=== PATIENT | female | born 1960 | race African-American/Black ===

== ENCOUNTER 2019-01-14 12:28 | Emergency (ER) | payer OTHER ==
[~2019-01-14] VITALS: Ht 175.3 cm; Wt 77.1 kg
[~2019-01-14 12:28] MED LIST: CALC-343 PO; INSU100V11 SQ; INSU100V7 SQ; MULT-465 PO; OMEP10CA4 PO; PROP10TA10 PO; VITA1TAB PO; [UNRECOGNIZED DRUG - CODE] PO
[2019-01-14 12:36] VITALS: BP 173/98
--- NOTE | 2019-01-14 12:47 | NUR ---
AT BEDSIDE FOR EVAL.
[2019-01-14] MEDS ORDERED: AMOXICILLIN TRIHYDRATE 250 MG CAPSULE ONE (12:56)
[2019-01-14] MEDS ORDERED: IBUPROFEN 600 MG TABLET PO ONE ×2 (12:56→13:00)
[2019-01-14] MEDS ORDERED: AMOXICILLIN TRIHYDRATE 250 MG CAPSULE PO ONE (13:00)
--- NOTE | 2019-01-14 13:05 | NUR ---
Patient discharged to home in stable condition. Written and verbal after care instructions given. Patient verbalizes understanding of instruction.
== END 2019-01-14 13:24 | disposition home or self-care (01) ==
LOC: ER 12:35
DX: J02.9 Acute pharyngitis, unspecified (principal); E11.9 Type 2 diabetes mellitus without complications; Z79.4 Long term (current) use of insulin

== ENCOUNTER 2019-02-03 15:17 | Inpatient (IN) | payer BC, OTHER ==
[~2019-02-03] VITALS: Ht 175.3 cm; Wt 71.7 kg
--- NOTE | 2019-02-03 08:15 | NUR ---
RN OPEN NOTES RECEIVED PATIENT FROM ER VIA WHEELCHAIR WITH FAMILY AT BEDSIDE. A/O X4. NO SIGNS OF DISTRESS OR DISCOMFORT. BREATHING EVEN AND UNLABORED. IV ACCESS IN RAC, PATENT AND INTACT, NO SIGNS OF REDNESS OR INFILTRATION. ORIENTED PATIENT TO UNIT AND ROOM. NO SKIN ISSUES NOTED. BED IN LOW LOCKED POSITION WITH SIDE RAILS X2. CALL LIGHT WITHIN REACH. WILL CONTINUE TO MONITOR. Addendum: 02/04/19 at 0721 by FREIDA BUI RN ERROR: DOCUMENTED WRONG TIME
[~2019-02-03 15:17] MED LIST changes: -OMEP10CA4 PO; +OMEP10CA5 PO
[2019-02-03] MEDS ORDERED: ONDANSETRON HCL/PF 4 MG/2 ML VIAL ONE (15:40)
[2019-02-03] MEDS ORDERED: MORPHINE SULFATE INJ 4 MG/ML DISP.SYRIN ONE (15:41)
[2019-02-03 15:51] LABS: BASOPHILS # (AUTO) 0.1 /CMM (0.0-0.2); BASOPHILS % (AUTO) 1.1 % (0.0-2.0); EOSINOPHILS % (AUTO) 2.7 % (0.0-6.0); HEMATOCRIT 40 % (33-45); HEMOGLOBIN 13.8 g/dL (11.5-14.8); LYMPHOCYTES # (AUTO) 0.2 /CMM (0.8-4.8); MEAN CORPUSCULAR HGB CONC 35 g/dl (31.0-36.0); MEAN CORPUSCULAR VOLUME 91 fL (82-100); MONOCYTES # (AUTO) 0.3 /CMM (0.1-1.30); MONOCYTES % (AUTO) 6.6 % (2.0-12.0); NEUTROPHILS # (AUTO) 4.1 /CMM (1.8-8.9); NEUTROPHILS % (AUTO) 84.6 % (43.0-81.0); PLATELET COUNT (AUTO) 76 /CMM (150-450); RED BLOOD CELL COUNT(AUTO) 4.37 MIL/uL (4.0-5.2); WHITE BLOOD COUNT (AUTO) 4.8 K/uL (4.3-11.0)
--- NOTE | 2019-02-03 15:54 | NUR ---
PT BIBSELF FOR ABD PAIN; PT AAOX4, PT TO BED 7, -SOB, NAD NOTED, PENDING MD VAUGHN
[2019-02-03] MEDS ORDERED: IV NS 0.9% 1,000 ML BAG IV ONE (16:00)
[2019-02-03] MEDS ORDERED: MORPHINE SULFATE INJ 2 MG/ML DISP.SYRIN IV ONE (16:00)
[2019-02-03] MEDS ORDERED: ONDANSETRON HCL/PF 4 MG/2 ML VIAL IVP ONE (16:00)
[2019-02-03 16:12] LABS: CALCIUM, SERUM 9.1 mg/dL (8.5-10.1); CARBON DIOXIDE 26 mmol/L (21-32); CHLORIDE 98 mmol/L (98-107); CREATININE 0.8 mg/dL (0.6-1.3); GLUCOSE 232 mg/dL (74-106); POTASSIUM 4.2 mmol/L (3.5-5.1); SODIUM SERUM 132 mmol/L (136-145); UREA NITROGEN, BLOOD 10 mg/dL (7-18)
[2019-02-03] MEDS ORDERED: IV NS 0.9% 250 ML IV ONE (16:12)
[2019-02-03] MEDS ORDERED: IOHEXOL-300 100 ML VIAL IV ONE (16:12)
[2019-02-03] MEDS ORDERED: CT SWABBABLE VALVE TRANS SET 1 EA INFUS.SET MC ONE (16:12)
[2019-02-03 16:25] LABS: ALANINE AMINOTRANSFERASE 55 U/L (12-78); ALBUMIN 2.8 g/dL (3.4-5.0); ALKALINE PHOSPHATASE 311 U/L (46-116); ASPARTATE AMINOTRANSFERASE 70 U/L (15-37); BILIRUBIN,DIRECT 3.1 mg/dL (0.0-0.2); BILIRUBIN,TOTAL 4.8 mg/dL (0.2-1.0); LIPASE 309 U/L (73-393); TOTAL PROTEIN, SERUM 7.4 g/dL (6.4-8.2)
[2019-02-03 16:37] LABS: EOSINOPHILS % (MANUAL) 2 % (0-4); LYMPHOCYTES % (MANUAL) 7 % (16-48); MONOCYTES % (MANUAL) 6 % (0-11.0); NEUTROPHILS % (MANUAL) 84 (42-76); PROMYELOCYTES % 1 % (0-0)
[2019-02-03] MEDS ORDERED: HYDROMORPHONE 1 MG/1 ML DISP.SYRIN ONE (17:22)
[2019-02-03] MEDS ORDERED: HYDROMORPHONE 1 MG/1 ML DISP.SYRIN IV ONE (17:30)
[2019-02-03] MEDS ORDERED: CHOL100044 PO (17:39)
[2019-02-03] MEDS ORDERED: VITA1TAB56 PO (17:39)
[2019-02-03] MEDS ORDERED: FURO20TA4 PO (17:39)
[2019-02-03] MEDS ORDERED: POTA20TA83 PO (17:39)
[2019-02-03] MEDS ORDERED: INSU100I26 SQ (17:39)
[2019-02-03] MEDS ORDERED: SPIR50TA5 PO (17:39)
[2019-02-03] MEDS ORDERED: RIFA550T PO (17:39)
[2019-02-03] MEDS ORDERED: INSU100I14 SQ (17:39)
[2019-02-03] MEDS ORDERED: PANT40TA4 PO (17:39)
[2019-02-03] MEDS ORDERED: MORPHINE SULFATE INJ 2 MG/ML DISP.SYRIN IV PRN (19:30)
[2019-02-03] MEDS ORDERED: Z GUARD REMEDY 2 OZ OINT TP PRN (19:30)
[2019-02-03] MEDS ORDERED: ZOLPIDEM TARTRATE 5 MG TABLET PO PRN (19:30)
[2019-02-03] MEDS ORDERED: LACTULOSE 10 G/15 ML UDC (PYXIS) PO ONE (19:30)
[2019-02-03] MEDS ORDERED: MAGNESIUM HYDROXIDE 30 ML UDC PO PRN (19:30)
[2019-02-03] MEDS ORDERED: ONDANSETRON HCL/PF 4 MG/2 ML VIAL IVP PRN (19:30)
[2019-02-03] MEDS ORDERED: HYDROCODONE/APAP 5/325MG 1 EACH TABLET PO PRN (19:30)
[2019-02-03] MEDS ORDERED: MAG HYDROX/AL HYDROX/SIMETH 30 ML UDC PO PRN (19:30)
[2019-02-03] MEDS ORDERED: DEXTROSE 50%-WATER 50 ML DISP.SYRIN IV PRN (19:30)
--- NOTE | 2019-02-03 19:43 | NUR ---
207-1 M/S DX PANCREATITIS, BERYL DNP
--- NOTE | 2019-02-03 20:00 | NUR ---
JOSELO TGIVEN TO JERRELL BARRAGAN FOR MARYBETH; PT WILL BE TRANSPORTED TO [facility]
[2019-02-03 20:10] VITALS: BP 151/86
--- NOTE | 2019-02-03 20:15 | NUR ---
RN OPEN NOTES RECEIVED PATIENT FROM ER VIA WHEELCHAIR WITH FAMILY AT BEDSIDE. A/O X4. NO SIGNS OF DISTRESS OR DISCOMFORT. BREATHING EVEN AND UNLABORED. IV ACCESS IN RAC, PATENT AND INTACT, NO SIGNS OF REDNESS OR INFILTRATION. ORIENTED PATIENT TO UNIT AND ROOM. NO SKIN ISSUES NOTED. BED IN LOW LOCKED POSITION WITH SIDE RAILS X2. CALL LIGHT WITHIN REACH. WILL CONTINUE TO MONITOR.
--- NOTE | 2019-02-03 20:40 | NUR ---
RN NOTES ADMINISTERED MORPHINE SULFATE 4MG ORDERED FOR ABD PAIN 04/23, AT PATIENT REQUEST. VSS. WILL CONTINUE TO MONITOR.
[2019-02-03] MEDS: BLOOD SUGAR DIAGNOSTIC 1 EACH STRIP IN SCH (21:51)
[2019-02-03] MEDS: INSULIN REGULAR, HUMAN 100 UNIT/ML 3 ML VIAL SQ PRN (21:53)
[2019-02-03] MEDS: INSULIN GLARGINE, 100 UNIT/ML CARTRIDGE SQ SCH (21:57)
[2019-02-04] MEDS: IV 1/2NS 1000 ML 1,000 ML IV PRN (01:20)
[2019-02-04] MEDS: diphenhydrAMINE HCL 25 MG CAPSULE PO PRN ×2 (03:02→20:42)
[2019-02-04 06:49] LABS: BASOPHILS % (AUTO) 0.4 % (0.0-2.0); EOSINOPHILS % (AUTO) 2.9 % (0.0-6.0); HEMATOCRIT 37 % (33-45); HEMOGLOBIN 12.7 g/dL (11.5-14.8); LYMPHOCYTES # (AUTO) 0.3 /CMM (0.8-4.8); LYMPHOCYTES % (AUTO) 4.8 % (20.0-44.0); MEAN CORPUSCULAR HGB CONC 34 g/dl (31.0-36.0); MEAN CORPUSCULAR VOLUME 90 fL (82-100); MONOCYTES # (AUTO) 0.6 /CMM (0.1-1.30); NEUTROPHILS # (AUTO) 5.4 /CMM (1.8-8.9); NEUTROPHILS % (AUTO) 82.9 % (43.0-81.0); PLATELET COUNT (AUTO) 78 /CMM (150-450); RED BLOOD CELL COUNT(AUTO) 4.11 MIL/uL (4.0-5.2); WHITE BLOOD COUNT (AUTO) 6.5 K/uL (4.3-11.0)
[2019-02-04] MEDS: BLOOD SUGAR DIAGNOSTIC 1 EACH STRIP IN SCH ×4 (06:51→21:44)
[2019-02-04 07:08] LABS: ALBUMIN 2.5 g/dL (3.4-5.0); BILIRUBIN,TOTAL 4.9 mg/dL (0.2-1.0); CALCIUM, SERUM 8.7 mg/dL (8.5-10.1); CREATININE 0.9 mg/dL (0.6-1.3); MAGNESIUM 1.3 mg/dL (1.8-2.4); POTASSIUM 4.2 mmol/L (3.5-5.1); TOTAL PROTEIN, SERUM 6.6 g/dL (6.4-8.2)
[2019-02-04 07:19] LABS: THYROID STIMULATING HORMONE 1.906 uIU/mL (0.358-3.74)
--- NOTE | 2019-02-04 07:21 | NUR ---
RN OPENING NOTE PT WAS RECEIVED IN BED AT LOWEST AND LOCKED POSITION WITH SIDE RAILS UP X2, A/O X4 BREATHING EVEN AND UNLABORED ON RA WITH NO CURRENT COMPLAINTS OF ANY DISTRESS OR PAIN NOTED AT THIS TIME, IV IS PATENT AND INTACT, AWAITING SOCIAL SERVICE CONSULT, PT IS AMBULATORY, SAFETY PRECAUTIONS IN PLACE, CALL LIGHT WITHIN REACH, WILL MONITOR ACCORDINGLY
--- NOTE | 2019-02-04 07:22 | NUR ---
RN CLOSING NOTES PATIENT AWAKE LYING IN BED. A/O X4. NO SIGNS OF DISTRESS OR DISCOMFORT. BREATHING EVEN AND UNLABORED. IV ACCESS IN RAC WITH 1/2 NS INFUSING, PATENT AND INTACT, NO SIGNS OF REDNESS OR INFILTRATION. ALL NEEDS MET. NO SIGNIFICANT CHANGES THROUGH THE NIGHT. DENIES ANY PAIN AT THIS TIME. BED IN LOW LOCKED POSITION WITH SIDE RAILS X2. CALL LIGHT WITHIN REACH. ENDORSED TO AM SHIFT FOR MARYBETH.
[2019-02-04 08:00] VITALS: BP 124/73
[2019-02-04] MEDS: CALCIUM CARBONATE 500 MG TAB.CHEW PO SCH ×2 (08:42→16:56)
[2019-02-04] MEDS: PANTOPRAZOLE 40 MG TABLET.DR PO SCH (08:43)
[2019-02-04] MEDS: CHOLECALCIFEROL 1,000 UNIT TABLET (VIT D3) PO SCH (08:43)
[2019-02-04] MEDS: POTASSIUM CHLORIDE 20 MEQ TAB.PRT.SR PO SCH (08:43)
[2019-02-04] MEDS: VITAMIN B COMP W-C 1 TAB TABLET PO SCH (08:43)
[2019-02-04] MEDS: PROPRANOLOL HCL 10 MG TABLET PO SCH (08:44)
[2019-02-04] MEDS: SPIRONOLACTONE 25 MG TABLET PO SCH (08:44)
[2019-02-04] MEDS: FUROSEMIDE 20 MG TABLET PO SCH (08:44)
[2019-02-04] MEDS: RIFAXIMIN 550 MG TABLET PO SCH ×2 (08:45→16:56)
[2019-02-04] MEDS ORDERED: SPIRONOLACTONE 50 MG TABLET PO SCH (09:00)
[2019-02-04 09:22] LABS: APPEARANCE,URINE CLEAR (CLEAR); BILIRUBIN,URINE 1+ (NEGATIVE); BLOOD, URINE TRACE Ery/uL (NEGATIVE); COLOR,URINE AMBER (YELLOW); KETONES,URINE TRACE (NEGATIVE); LEUKOCYTE ESTERASE ,URINE 2+ (NEGATIVE); NITRITE, URINE NEGATIVE (NEGATIVE); PH,URINE 6.5 (5.0-8.0); PROTEIN,URINE TRACE mg/dl (NEGATIVE); UGLUCOSE NEGATIVE (NEGATIVE)
[2019-02-04 09:43] LABS: BACTERIA,URINE Moderate /HPF (None Seen); SQUAMOUS EPITHELIAL CELL,UR Many /HPF (None Seen)
[2019-02-04] MEDS: Magnesium 1GM/D5W 100ML PREMIX 100 ML IV SCH ×4 (11:55→15:03)
[2019-02-04] MEDS: INSULIN REGULAR, HUMAN 100 UNIT/ML 3 ML VIAL SQ PRN ×3 (11:58→21:59)
--- NOTE | 2019-02-04 14:30 | NUR ---
RN NOTE MAG REPLACED AT THIS TIME
[2019-02-04] MEDS: CEFTRIAXONE 1 G in IV D5W 50 ML IV SCH (15:08)
[2019-02-04] MEDS: HYDROMORPHONE 1 MG/1 ML DISP.SYRIN IV PRN ×2 (15:12→21:23)
[2019-02-04 16:00] VITALS: BP 137/76
--- NOTE | 2019-02-04 17:05 | NUR ---
RN NOTE 1700 MEDS HELD AND NO INSULIN GIVEN DUE TO NPO DIAGNOSIS AND LANTUS SCHEDULED FOR LATER THIS NIGHT
--- NOTE | 2019-02-04 18:52 | NUR ---
RN OPENING NOTE PT IN BED AT LOWEST AND LOCKED POSITION WITH SIDE RAILS UP X2, A/O X4 BREATHING EVEN AND UNLABORED ON RA WITH NO CURRENT COMPLAINTS OF ANY DISTRESS OR PAIN NOTED AT THIS TIME, IV IS PATENT AND INTACT, CURRENTLY NPO, SAFETY PRECAUTIONS IN PLACE, CALL LIGHT WITHIN REACH, ALL NEEDS ATTENDED TO, WILL ENDORSE TO EAP SPECIALIST RN FOR MARYBETH. Addendum: 02/04/19 at 1854 by TASH SANTOS RN RN CLOSING NOTE
--- NOTE | 2019-02-04 19:00 | NUR ---
MS RN OPENING NOTES: RECEIVED PT ON ROOM AIR AND IS TOLERATING WELL. NO SOB NOTED. NO S/S OF DISTRESS. PT NPO AT THIS TIME AND ASKING IF SHE CAN HAVE SOMETHING TO EAT SHE IS HUNGRY. IV REMAINS INTACT AND IS BEING INFUSED WITH IV 1/2 NS AT 125ML/HR. BED KEPT IN LOW, LOCKED POSITION, AND SIDE RAILS X 2UP. WILL CONTINUE TO MONITOR PT.
[2019-02-04 20:17] VITALS: BP 131/82
--- NOTE | 2019-02-04 20:20 | NUR ---
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 ALSO INFORMED HER THAT PT HAS A TEMP OF 100.4 ; GOT ORDER FOR TYLENOL 650MG PO Q6HR PRN FEVER.
[2019-02-04] MEDS: ACETAMINOPHEN 325 MG TABLET PO PRN (21:51)
[2019-02-04] MEDS: INSULIN GLARGINE, 100 UNIT/ML CARTRIDGE SQ SCH (21:58)
--- NOTE | 2019-02-04 23:20 | NUR ---
MS RN NOTES: SKYLA MCNEAL AWARE OF US AB AND DOPPLER AB RESULTS.
--- NOTE | 2019-02-05 | NUR ---
MS RN NOTES: ICE PACKS GIVEN TO PT TO HELD REDUCE FEVER. WILL CONTINUE TO MONITOR.
[2019-02-05] MEDS: IV 1/2NS 1000 ML 1,000 ML IV PRN ×2 (01:40→12:01)
[2019-02-05] MEDS: LACTULOSE 10 G/15 ML UDC (PYXIS) PO PRN (01:44)
--- NOTE | 2019-02-05 01:45 | NUR ---
MS RN NOTES: PT COMPLAINING OF CONSTIPATION. PT GIVEN LACTULOSE PO ORDERED. WILL CONTINUE TO MONITOR.
[2019-02-05] MEDS: HYDROMORPHONE 1 MG/1 ML DISP.SYRIN IV PRN ×2 (06:14→16:29)
[2019-02-05] MEDS: INSULIN REGULAR, HUMAN 100 UNIT/ML 3 ML VIAL SQ PRN ×3 (06:19→16:53)
--- NOTE | 2019-02-05 06:24 | NUR ---
MS RN NOTES: PT WAKING UP AND COMPLAINING OF 10/10 AB CRAMPY PAIN. PT WAS ADMINISTERED DILAUDID 1MG IV. BLOOD SUGAR THIS MORNING WAS 273. 6 UNITS OF INSULIN WAS ADMINISTERED. SNACK WAS PROVIDED TO PT WELL. WILL CONTINUE TO MONITOR.
[2019-02-05 06:28] LABS: BASOPHILS % (AUTO) 0.3 % (0.0-2.0); HEMATOCRIT 36 % (33-45); HEMOGLOBIN 12.5 g/dL (11.5-14.8); LYMPHOCYTES # (AUTO) 0.2 /CMM (0.8-4.8); LYMPHOCYTES % (AUTO) 3.5 % (20.0-44.0); MEAN CORPUSCULAR HGB CONC 35 g/dl (31.0-36.0); MEAN CORPUSCULAR VOLUME 91 fL (82-100); MONOCYTES # (AUTO) 0.7 /CMM (0.1-1.30); MONOCYTES % (AUTO) 11.6 % (2.0-12.0); NEUTROPHILS % (AUTO) 82.6 % (43.0-81.0); PLATELET COUNT (AUTO) 65 /CMM (150-450); RED BLOOD CELL COUNT(AUTO) 3.98 MIL/uL (4.0-5.2); WHITE BLOOD COUNT (AUTO) 6.1 K/uL (4.3-11.0)
[2019-02-05] MEDS: BLOOD SUGAR DIAGNOSTIC 1 EACH STRIP IN SCH ×4 (06:34→21:22)
[2019-02-05 06:43] LABS: ALBUMIN 2.3 g/dL (3.4-5.0); BILIRUBIN,DIRECT 4.6 mg/dL (0.0-0.2); CALCIUM, SERUM 8.4 mg/dL (8.5-10.1); CREATININE 0.9 mg/dL (0.6-1.3); MAGNESIUM 1.7 mg/dL (1.8-2.4); POTASSIUM 4.1 mmol/L (3.5-5.1); TOTAL PROTEIN, SERUM 6.3 g/dL (6.4-8.2)
--- NOTE | 2019-02-05 07:03 | NUR ---
MS RN CLOSING NOTES: ALL NEEDS WERE ATTENDED AND ANTICIPATED FOR. PT KEPT CLEAN, DRY, AND COMFORTABLE. PT RESTING IN BED COMFORTABLY AT THIS TIME. PAIN HAS BEEN MANAGED. IV REMAINS INTACT AND IS BEING INFUSED WITH IV 1/2 NS AT 125ML/HR. BED KEPT IN LOW, LOCKED POSITION, AND SIDE RAILS X 2UP. WILL ENDORSE TO AM NURSE FOR MARYBETH.
[2019-02-05 08:00] VITALS: BP 120/75
--- NOTE | 2019-02-05 08:00 | NUR ---
MS RN OPENING NOTES: RECEIVED PT ON ROOM AIR AND IS TOLERATING WELL. NO SOB NOTED. NO S/S OF DISTRESS. PT AMBULATING ALONG THE HALLWAY.TOLERATING WELL. PT C/O NOT HAVING BM SINCE LAST MONDAY.IV REMAINS INTACT AND IS BEING INFUSED WITH IV 1/2 NS AT 125ML/HR. BED KEPT IN LOW, LOCKED POSITION, AND SIDE RAILS X 2UP. WILL GIVE MILK OF MAGNESIA.WILL CONTINUE TO MONITOR PT. CALL LIGHT WITHIN REACH.
[2019-02-05] MEDS: PROPRANOLOL HCL 10 MG TABLET PO SCH (09:18)
[2019-02-05] MEDS: VITAMIN B COMP W-C 1 TAB TABLET PO SCH (09:18)
[2019-02-05] MEDS: SPIRONOLACTONE 25 MG TABLET PO SCH (09:19)
[2019-02-05] MEDS: PANTOPRAZOLE 40 MG TABLET.DR PO SCH (09:19)
[2019-02-05] MEDS: POTASSIUM CHLORIDE 20 MEQ TAB.PRT.SR PO SCH (09:19)
[2019-02-05] MEDS: FUROSEMIDE 20 MG TABLET PO SCH (09:19)
[2019-02-05] MEDS: CHOLECALCIFEROL 1,000 UNIT TABLET (VIT D3) PO SCH (09:19)
[2019-02-05] MEDS: RIFAXIMIN 550 MG TABLET PO SCH ×2 (09:19→16:30)
[2019-02-05] MEDS: CALCIUM CARBONATE 500 MG TAB.CHEW PO SCH ×2 (09:19→16:29)
[2019-02-05] MEDS: Magnesium 1GM/D5W 100ML PREMIX 100 ML IV SCH ×2 (11:51→16:17)
[2019-02-05] MEDS: CEFTRIAXONE 1 G in IV D5W 50 ML IV SCH (14:50)
--- NOTE | 2019-02-05 15:16 | NUR ---
DELAYED ADMINISTRATION OF MAGNESIUM IV BECAUSE PT KEEPS GOING TO THE TOILET.
[2019-02-05] MEDS: ACETAMINOPHEN 325 MG TABLET PO PRN (15:22)
[2019-02-05 16:00] VITALS: BP 139/84
--- NOTE | 2019-02-05 19:11 | NUR ---
PT HAS PENDING DISCHARGE TO [facility] FOR BED AVAILABILITY FOR LIVER TRANSPLANT EVAL. AMBULANCE WILL CALL STATUS.PT AWARE.ON NPO DUE TO HIGH LIPASE LEVEL PER MIRYAMGRAINING MACHINE OPERATOR OF GI.EXPLAINED TO PT THAT SHE HAS ONGOING IVF THAT WILL SERVE HER HYDRATION.HELD INSULIN ADMINISTRATION DUE TO NPO. LATEST BLOOD SUGAR IS 325. DENIES ANY PAIN OR DISTRESS.CALL LIGHT PLACED WITHIN REACH.
--- NOTE | 2019-02-05 19:25 | NUR ---
MS RN OPENING NOTES: RECEIVED PT ON ROOM AIR AND IS TOLERATING WELL. PT NPO AT THIS TIME. PT AWAITING FOR BED AT [facility]. PT HAS IV ON R AC BEING INFUSED WITH IV 1/2 NS AT 125ML/HR. BED KEPT IN LOW, LOCKED POSITION, AND SIDE RAILS X 2UP. WILL CONTINUE TO MONITOR PT.
[2019-02-05 20:11] VITALS: BP 112/70
--- NOTE | 2019-02-05 20:51 | NUR ---
MS RN NOTES: CONTACTED MAIL INSERTER TY MOBLEY. PER LEANDRA, SHE HAS NOT YET SIGNED PT OUT TO ANYONE AT [facility]. SHE WILL DO DC SUMMARY IF SHE DOES.
[2019-02-05] MEDS: INSULIN GLARGINE, 100 UNIT/ML CARTRIDGE SQ SCH (22:00)
--- NOTE | 2019-02-05 22:03 | NUR ---
MS RN NOTES: BLOOD SUGAR WAS 285 FOR PM. HELD LANTUS EVENING DOSE PT IS NPO. EARLIER, IT WAS HELD WELL AND IT WAS 325. BLOOD SUGAR TRENDING DOWN. WILL ALSO HOLD REGULAR INSULIN DOSE 6 UNITS WELL. WILL CONTINUE TO MONITOR. PT ALSO PENDING FOR A BED IN [facility]. PT ON 08/15 NS AT 125ML/HR. WILL CONTINUE TO MONITOR.
[2019-02-06] MEDS: IV 1/2NS 1000 ML 1,000 ML IV PRN ×2 (05:31→21:16)
[2019-02-06] MEDS: BLOOD SUGAR DIAGNOSTIC 1 EACH STRIP IN SCH ×4 (06:39→21:50)
[2019-02-06 06:40] LABS: ALBUMIN 2.3 g/dL (3.4-5.0); BILIRUBIN,DIRECT 4.7 mg/dL (0.0-0.2); BILIRUBIN,TOTAL 6.5 mg/dL (0.2-1.0); CALCIUM, SERUM 8.7 mg/dL (8.5-10.1); CREATININE 0.8 mg/dL (0.6-1.3); MAGNESIUM 1.6 mg/dL (1.8-2.4); PHOSPHORUS 2.5 mg/dL (2.5-4.9); POTASSIUM 4.3 mmol/L (3.5-5.1); TOTAL PROTEIN, SERUM 6.5 g/dL (6.4-8.2)
[2019-02-06 06:55] LABS: BASOPHILS % (AUTO) 0.4 % (0.0-2.0); HEMATOCRIT 36 % (33-45); HEMOGLOBIN 12.5 g/dL (11.5-14.8); LYMPHOCYTES # (AUTO) 0.3 /CMM (0.8-4.8); LYMPHOCYTES % (AUTO) 5.4 % (20.0-44.0); MEAN CORPUSCULAR HGB CONC 35 g/dl (31.0-36.0); MEAN CORPUSCULAR VOLUME 91 fL (82-100); MONOCYTES # (AUTO) 0.6 /CMM (0.1-1.30); MONOCYTES % (AUTO) 11.6 % (2.0-12.0); NEUTROPHILS # (AUTO) 4.3 /CMM (1.8-8.9); NEUTROPHILS % (AUTO) 79.6 % (43.0-81.0); PLATELET COUNT (AUTO) 77 /CMM (150-450); RED BLOOD CELL COUNT(AUTO) 3.97 MIL/uL (4.0-5.2); WHITE BLOOD COUNT (AUTO) 5.4 K/uL (4.3-11.0)
[2019-02-06] MEDS: INSULIN REGULAR, HUMAN 100 UNIT/ML 3 ML VIAL SQ PRN (07:18)
--- NOTE | 2019-02-06 07:18 | NUR ---
MS RN CLOSING NOTES: ALL NEEDS WERE ATTENDED AND ANTICIPATED FOR. PT AWAITING FOR BED TRANSFER TO ANOTHER HOSPITAL. PT VERY EMOTIONAL AT THIS TIME. IV REMAINS INTACT AND IS BEING INFUSED WITH IV 1/2 NS AT 125ML/HR. BED KEPT IN LOW, LOCKED POSITION, AND SIDE RAILS X 2UP. PT REMAINS NPO. ICE PACKS GIVEN TO BE PLACED UNDER BILATERAL ARMS WELL. ENDORSED TO AM NURSE FOR MARYBETH.
[2019-02-06] MEDS: PANTOPRAZOLE 40 MG TABLET.DR PO SCH ×2 (07:30→10:46)
[2019-02-06 08:00] VITALS: BP 132/82
[2019-02-06] MEDS: PROPRANOLOL HCL 10 MG TABLET PO SCH ×2 (08:42→10:44)
[2019-02-06] MEDS: SPIRONOLACTONE 25 MG TABLET PO SCH ×2 (08:42→10:45)
[2019-02-06] MEDS: VITAMIN B COMP W-C 1 TAB TABLET PO SCH ×2 (08:43→10:41)
[2019-02-06] MEDS: FUROSEMIDE 20 MG TABLET PO SCH ×2 (08:43→10:43)
[2019-02-06] MEDS: CHOLECALCIFEROL 1,000 UNIT TABLET (VIT D3) PO SCH ×2 (08:43→10:46)
[2019-02-06] MEDS: POTASSIUM CHLORIDE 20 MEQ TAB.PRT.SR PO SCH ×2 (08:43→10:43)
[2019-02-06] MEDS: RIFAXIMIN 550 MG TABLET PO SCH ×2 (08:43→17:56)
[2019-02-06] MEDS: CALCIUM CARBONATE 500 MG TAB.CHEW PO SCH ×3 (08:43→17:56)
[2019-02-06 08:59] LABS: EOSINOPHILS % (MANUAL) 3 % (0-4); LYMPHOCYTES % (MANUAL) 9 % (16-48); MONOCYTES % (MANUAL) 10 % (0-11.0); NEUTROPHILS % (MANUAL) 78 (42-76)
[2019-02-06] MEDS: LACTULOSE 10 G/15 ML UDC (PYXIS) PO PRN ×2 (10:43→18:02)
[2019-02-06] MEDS: Magnesium 1GM/D5W 100ML PREMIX 100 ML IV SCH ×2 (10:46→12:12)
[2019-02-06] MEDS: HYDROMORPHONE 1 MG/1 ML DISP.SYRIN IV PRN ×2 (13:35→21:05)
[2019-02-06] MEDS: CEFTRIAXONE 1 G in IV D5W 50 ML IV SCH (15:48)
--- NOTE | 2019-02-06 18:00 | NUR ---
PT AMBULATING IN THE HALLWAY.WITH ONGOING IVF OF 1/2 NS AT 125 ML/HR INFUSING WELL. DENIES ANY PAIN OR DISTRESS.STILL WAITING FOR BED AVAILABILITY IN [facility]. REMAINS NPO.CALL LIGHT PLACED WITHIN REACH.
[2019-02-06 20:00] VITALS: BP 140/83
--- NOTE | 2019-02-06 20:17 | NUR ---
RN OPENING NOTES RECEIVED PATIENT AWAKE RESTING IN BED, COMFORTABLY. PATIENT IS A/O X 4. PATIENT IS NPO AT THIS TIME. PATIENT ON ROOM AIR AND TOLERATING WELL. PATIENT IS AWAITING BED AT [facility]. IV SITE: RIGHT AC #20 INTACT AND PATENT WITH 1/2 NS AT 125 ML/HR. SAFETY PRECAUTIONS IMPLEMENTED; CALL LIGHT WITHIN REACH, BED IN LOWEST POSITION, BED LOCKED, SIDE RAILS UP X2. WILL CONTINUE TO MONITOR PATIENT.
[2019-02-06 20:41] VITALS: BP 140/83
--- NOTE | 2019-02-06 21:54 | NUR ---
RN NOTES BLOOD SUGAR WAS 270 FOR PM. HELD LANTUS EVENING DOSE PATIENT IS NPO. EARLIER, IT WAS HELD WELL. WILL ALSO HOLD REGULAR INSULIN DOSE 6 UNITS WELL. WILL CONTINUE TO MONITOR. PT ON 08/15 NS AT 125ML/HR. WILL CONTINUE TO MONITOR.
[2019-02-06] MEDS: INSULIN GLARGINE, 100 UNIT/ML CARTRIDGE SQ SCH (22:00)
--- NOTE | 2019-02-07 01:33 | NUR ---
RN NOTES [facility] CALLED TO INFORM THERE IS NO BED AVAILABLE YET. TRANSFER WILL NOT HAPPEN TONIGHT. PERSON INFORMING ME, WAS SANIYA. SHE STATES MOST LIKELY IN THE MORNING. THEY WILL CALL TO INFORM US IF IT WILL HAPPEN. WILL ENDORSE TO AM SHIFT.
[2019-02-07] MEDS: IV 1/2NS 1000 ML 1,000 ML IV PRN ×2 (05:00→20:45)
[2019-02-07] MEDS: HYDROMORPHONE 1 MG/1 ML DISP.SYRIN IV PRN ×4 (06:20→21:36)
[2019-02-07] MEDS: BLOOD SUGAR DIAGNOSTIC 1 EACH STRIP IN SCH ×4 (06:45→22:15)
--- NOTE | 2019-02-07 06:50 | NUR ---
RN CLOSING NOTES PATIENT AWAKE, RESTING COMFORTABLY IN BED. NO SIGNS OF RESPIRATORY DISTRESS OR SOB. NO CURRENT COMPLAINTS OF ANY DISTRESS OF PAIN NOTED AT THIS TIME. IV SITE INTACT AND PATENT. PATIENT CURRENTLY NPO. SAFETY PRECAUTIONS IMPLEMENTED; CALL LIGHT WITHIN REACH, BED IN LOWEST POSITION, BED LOCKED, SIDE RAILS UP X2. ALL NEEDS ATTENDED TO. WILL ENDORSE TO AM SHIFT FOR CONTINUITY OF CARE.
[2019-02-07 06:57] LABS: BASOPHILS % (AUTO) 0.4 % (0.0-2.0); EOSINOPHILS % (AUTO) 4.6 % (0.0-6.0); HEMATOCRIT 34 % (33-45); LYMPHOCYTES # (AUTO) 0.2 /CMM (0.8-4.8); LYMPHOCYTES % (AUTO) 5.1 % (20.0-44.0); MEAN CORPUSCULAR HGB CONC 35 g/dl (31.0-36.0); MEAN CORPUSCULAR VOLUME 90 fL (82-100); MONOCYTES # (AUTO) 0.7 /CMM (0.1-1.30); MONOCYTES % (AUTO) 15.4 % (2.0-12.0); NEUTROPHILS # (AUTO) 3.4 /CMM (1.8-8.9); NEUTROPHILS % (AUTO) 74.5 % (43.0-81.0); PLATELET COUNT (AUTO) 87 /CMM (150-450); RED BLOOD CELL COUNT(AUTO) 3.81 MIL/uL (4.0-5.2); WHITE BLOOD COUNT (AUTO) 4.6 K/uL (4.3-11.0)
[2019-02-07 07:23] LABS: CALCIUM, SERUM 8.5 mg/dL (8.5-10.1); CREATININE 0.8 mg/dL (0.6-1.3); MAGNESIUM 1.4 mg/dL (1.8-2.4); PHOSPHORUS 3.2 mg/dL (2.5-4.9); POTASSIUM 4.1 mmol/L (3.5-5.1)
[2019-02-07 07:44] VITALS: BP 110/67
[2019-02-07 07:55] LABS: BAND % (MANUAL) 1 % (0.0-5.0); EOSINOPHILS % (MANUAL) 2 % (0-4); LYMPHOCYTES % (MANUAL) 6 % (16-48); MONOCYTES % (MANUAL) 9 % (0-11.0); NEUTROPHILS % (MANUAL) 82 (42-76)
[2019-02-07 08:00] VITALS: BP 110/67
--- NOTE | 2019-02-07 08:00 | NUR ---
MS RN OPENING NOTES: RECEIVED PT ON ROOM AIR .NO SOB NOTED. NO S/S OF DISTRESS. PT AMBULATING ALONG THE HALLWAY.TOLERATING WELL. PT C/O NOT HAVING BM SINCE LAST MONDAY.IV REMAINS INTACT AND IS BEING INFUSED WITH IV 1/2 NS AT 125ML/HR. BED KEPT IN LOW, LOCKED POSITION, AND SIDE RAILS X 2UP. WILL GIVE LACTULOSE.WILL CONTINUE TO MONITOR PT. CALL LIGHT WITHIN REACH.
[2019-02-07] MEDS: VITAMIN B COMP W-C 1 TAB TABLET PO SCH (08:06)
[2019-02-07] MEDS: CALCIUM CARBONATE 500 MG TAB.CHEW PO SCH ×2 (08:06→17:34)
[2019-02-07] MEDS: LACTULOSE 10 G/15 ML UDC (PYXIS) PO PRN (08:06)
[2019-02-07] MEDS: POTASSIUM CHLORIDE 20 MEQ TAB.PRT.SR PO SCH (08:06)
[2019-02-07] MEDS: SPIRONOLACTONE 25 MG TABLET PO SCH (08:06)
[2019-02-07] MEDS: PANTOPRAZOLE 40 MG TABLET.DR PO SCH (08:06)
[2019-02-07] MEDS: CHOLECALCIFEROL 1,000 UNIT TABLET (VIT D3) PO SCH (08:06)
[2019-02-07] MEDS: RIFAXIMIN 550 MG TABLET PO SCH ×2 (08:06→17:34)
[2019-02-07] MEDS: PROPRANOLOL HCL 10 MG TABLET PO SCH (08:06)
[2019-02-07] MEDS: FUROSEMIDE 20 MG TABLET PO SCH (08:06)
--- NOTE | 2019-02-07 08:10 | NUR ---
AWAITING FOR BED AVAILABILITY IN [facility] AND [facility] FOR LIVER TRANSPLANT EVAL.
[2019-02-07] MEDS: Magnesium 1GM/D5W 100ML PREMIX 100 ML IV SCH ×4 (09:52→14:09)
[2019-02-07 11:10] LABS: BILIRUBIN,DIRECT 3.8 mg/dL (0.0-0.2); BILIRUBIN,TOTAL 5.3 mg/dL (0.2-1.0)
--- NOTE | 2019-02-07 14:10 | NUR ---
PT KEEPS GOING TO THE TOILET DELAYING MG IV ADMINISTRATION
[2019-02-07] MEDS: CEFTRIAXONE 1 G in IV D5W 50 ML IV SCH (15:12)
[2019-02-07 16:27] VITALS: BP 119/80
[2019-02-07] MEDS: INSULIN REGULAR, HUMAN 100 UNIT/ML 3 ML VIAL SQ PRN (17:37)
--- NOTE | 2019-02-07 18:27 | NUR ---
PT ATE DINNER -CLEAR LIQUID DIET 100%-TOLERATING WELL.NO C/O N/V. WITH ONGOING IVF OF 0.45 NS AT 125 ML/HR INFUSING WELL. WILL MONITOR. CALL LIGHT PLACED WITHIN REACH.
--- NOTE | 2019-02-07 19:49 | NUR ---
RN OPENING NOTES RECEIVED PATIENT AWAKE RESTING IN BED, COMFORTABLY. PATIENT IS A/O X 4. PATIENT ON ROOM AIR AND TOLERATING WELL. PATIENT IS AWAITING BED AT [facility] FOR LIVER TRANSPLANT EVAL. IV SITE: RIGHT AC #20 INTACT AND PATENT WITH 1/2 NS AT 125 ML/HR. SAFETY PRECAUTIONS IMPLEMENTED; CALL LIGHT WITHIN REACH, BED IN LOWEST POSITION, BED LOCKED, SIDE RAILS UP X2. WILL CONTINUE TO MONITOR PATIENT.
[2019-02-07 20:22] VITALS: BP 122/74
--- NOTE | 2019-02-07 20:25 | NUR ---
RN NOTES TRACK INSPECTORFREDIS TALKED TO THE PATIENT AND PUT VERBAL ORDERS FOR CT ABDOMEN WITH CONTRAST TO BE DONE IN AM. ORDERS ARE IN. INDICATED FOR UNRESOLVING EPIGASTRIC PAIN. WILL OBTAIN CONSENT FOR PROCEDURE. WILL KEEP PATIENT NPO.
[2019-02-07] MEDS: INSULIN GLARGINE, 100 UNIT/ML CARTRIDGE SQ SCH (22:00)
--- NOTE | 2019-02-07 22:00 | NUR ---
RN NOTES LANTUS AND REGULAR INSULIN WITHHELD DUE TO PATIENT BEING NPO FOR TOMORROWS CT AB PROCEDURE.
--- NOTE | 2019-02-07 22:05 | NUR ---
RN NOTES CONSENT OBTAINED FOR CT ABDOMEN WITH CONTRAST. PATIENT STATES SHE IS NOT ALLERGIC TO CONTRAST. SHE STATES SHE HAS NO REACTION TO CONTRAST.
--- NOTE | 2019-02-08 01:20 | NUR ---
RN NOTES [facility]'S MINET FROM ADMITTING CALLED REGARDING PATIENT'S BED AVAILABILITY. SHE STATES A BED MIGHT BE AVAILABLE TOMORROW. THEY WILL FOLLOW UP IF NEEDED.
[2019-02-08] MEDS: IV 1/2NS 1000 ML 1,000 ML IV PRN (06:22)
[2019-02-08 06:30] LABS: BASOPHILS # (AUTO) 0.1 /CMM (0.0-0.2); BASOPHILS % (AUTO) 1.4 % (0.0-2.0); EOSINOPHILS % (AUTO) 5.7 % (0.0-6.0); HEMATOCRIT 39 % (33-45); HEMOGLOBIN 13.7 g/dL (11.5-14.8); LYMPHOCYTES # (AUTO) 0.3 /CMM (0.8-4.8); LYMPHOCYTES % (AUTO) 6.1 % (20.0-44.0); MEAN CORPUSCULAR HGB CONC 35 g/dl (31.0-36.0); MEAN CORPUSCULAR VOLUME 91 fL (82-100); MONOCYTES # (AUTO) 0.8 /CMM (0.1-1.30); MONOCYTES % (AUTO) 14.5 % (2.0-12.0); NEUTROPHILS # (AUTO) 4.1 /CMM (1.8-8.9); NEUTROPHILS % (AUTO) 72.3 % (43.0-81.0); PLATELET COUNT (AUTO) 161 /CMM (150-450); RED BLOOD CELL COUNT(AUTO) 4.32 MIL/uL (4.0-5.2); WHITE BLOOD COUNT (AUTO) 5.7 K/uL (4.3-11.0)
[2019-02-08] MEDS: HYDROMORPHONE 1 MG/1 ML DISP.SYRIN IV PRN ×4 (06:39→23:17)
[2019-02-08 06:58] LABS: ALBUMIN 2.7 g/dL (3.4-5.0); BILIRUBIN,DIRECT 4.2 mg/dL (0.0-0.2); BILIRUBIN,TOTAL 5.5 mg/dL (0.2-1.0); CALCIUM, SERUM 9.3 mg/dL (8.5-10.1); MAGNESIUM 1.5 mg/dL (1.8-2.4); PHOSPHORUS 3.8 mg/dL (2.5-4.9); POTASSIUM 4.1 mmol/L (3.5-5.1); TOTAL PROTEIN, SERUM 7.7 g/dL (6.4-8.2)
[2019-02-08] MEDS: PANTOPRAZOLE 40 MG TABLET.DR PO SCH (07:30)
--- NOTE | 2019-02-08 07:49 | NUR ---
MS RN NOTES PATIENT RECEIVED RESTING INSIDE ROOM. AWAKE, ALERT AND ORIENTED X 4, VERBALLY RESPONSIVE AND RESPONDS TO VERBAL AND TACTILE STIMULI. NO CHANGES IN LOC NOTED AT THIS TIME. PATIENT NPO SINCE MIDNIGHT. AWAITING FOR CT ABDOMEN WITH CONTRAST, VERIFIED WITH RADIOLOGY THAT PROCEDURE WILL BE DONE THIS AM. PATIENT AWARE AND VERBALIZED UNDERSTANDING. WILL CONTINUE TO MONITOR. BED LOCKED AND IN LOW POSITION. BILATERAL UPPER SIDE RAILS UP AND LOCKED. CALL LIGHT WITHIN EASY REACH
[2019-02-08 08:08] VITALS: BP 106/60
[2019-02-08] MEDS: BLOOD SUGAR DIAGNOSTIC 1 EACH STRIP IN SCH ×4 (08:23→21:57)
[2019-02-08] MEDS: PROPRANOLOL HCL 10 MG TABLET PO SCH (08:24)
[2019-02-08] MEDS: SPIRONOLACTONE 25 MG TABLET PO SCH (08:24)
[2019-02-08] MEDS: RIFAXIMIN 550 MG TABLET PO SCH ×2 (08:25→16:17)
[2019-02-08] MEDS: CALCIUM CARBONATE 500 MG TAB.CHEW PO SCH ×2 (08:25→16:17)
[2019-02-08] MEDS: CHOLECALCIFEROL 1,000 UNIT TABLET (VIT D3) PO SCH (08:25)
[2019-02-08] MEDS: VITAMIN B COMP W-C 1 TAB TABLET PO SCH (08:25)
[2019-02-08] MEDS: POTASSIUM CHLORIDE 20 MEQ TAB.PRT.SR PO SCH (08:25)
[2019-02-08] MEDS: FUROSEMIDE 20 MG TABLET PO SCH (08:25)
[2019-02-08] MEDS: INSULIN REGULAR, HUMAN 100 UNIT/ML 3 ML VIAL SQ PRN ×4 (08:26→21:58)
[2019-02-08] MEDS ORDERED: IOHEXOL-300 100 ML VIAL IV ONE (09:22)
[2019-02-08] MEDS ORDERED: IV NS 0.9% 250 ML IV ONE (09:22)
[2019-02-08] MEDS ORDERED: CT SWABBABLE VALVE TRANS SET 1 EA INFUS.SET MC ONE (09:22)
[2019-02-08] MEDS: Magnesium 1GM/D5W 100ML PREMIX 100 ML IV SCH ×2 (11:53→13:17)
[2019-02-08 12:14] LABS: CALCIUM, SERUM 8.8 mg/dL (8.5-10.1); CREATININE 0.9 mg/dL (0.6-1.3); POTASSIUM 4.2 mmol/L (3.5-5.1)
[2019-02-08 12:19] LABS: ALBUMIN 2.5 g/dL (3.4-5.0); BILIRUBIN,TOTAL 5.3 mg/dL (0.2-1.0)
--- NOTE | 2019-02-08 12:55 | NUR ---
MS RN NOTES PATIENT SEEN AND EXAMINED BY MIRYAM MCNEAL HOME CARE AIDE. WITH NEW ORDER TO UPGRADE DIET TO FULL LIQUID DIET. ORDER NOTED AND CARRIED OUT. PATIENT MADE AWARE AND VERBALIZED UNDERSTANDING. WILL CONTINUE TO MONITOR
[2019-02-08] MEDS: CEFTRIAXONE 1 G in IV D5W 50 ML IV SCH (15:02)
[2019-02-08 16:09] VITALS: BP 134/80
--- NOTE | 2019-02-08 18:50 | NUR ---
MS RN NOTES PATIENT RESTING INSIDE ROOM. AWAKE, ALERT AND ORIENTED, VERBALLY RESPONSIVE AND RESPONDS TO VERBAL AND TACTILE STIMULI. NO ACUTE DISTRESS. PATIENT CALM AND RELAXED. NO CHANGES IN LOC NOTED. WILL ENDORSE TO INCOMING SHIFT FOR MARYBETH. BED LOCKED AND IN LOW POSITION. BILATERAL UPPER SIDE RAILS UP AND LOCKED. CALL LIGHT WITHIN EASY REACH
--- NOTE | 2019-02-08 19:15 | NUR ---
RN OPEN NOTES RECEIVED PATIENT AWAKE IN BED WITH FAMILY AT BEDSIDE. A/OX4. NO SIGNS OF DISTRESS OR DISCOMFORT. BREATHING EVEN AND UNLABORED. IV ACCESS IN RAC WITH 1/2 NS INFUSING, PATENT AND INTACT, NO SIGNS OF REDNESS OR INFILTRATION. PATIENT PENDING TRANSFER TO [facility], AWAITING BED ASSIGNMENT. STATES PAIN TOLERABLE AT THIS TIME. BED IN LOW LOCKED POSITION WITH SIDE RAILS X2. CALL LIGHT WITHIN REACH. WILL CONTINUE TO MONITOR.
[2019-02-08 20:00] VITALS: BP 129/70
--- NOTE | 2019-02-08 21:45 | NUR ---
RN NOTES NOTIFIED DR. GRIER THAT PATIENT HAS BEEN ASSIGNED A BED AT [facility] AND WILL BE TRANSFERRED TONIGHT. NO NEW ORDERS GIVEN. WILL CONTINUE TO MONITOR.
[2019-02-08] MEDS: INSULIN GLARGINE, 100 UNIT/ML CARTRIDGE SQ SCH (21:57)
--- NOTE | 2019-02-08 23:17 | NUR ---
RN NOTES ADMINISTERED DILAUDID 1MG ORDERED FOR ABD PAIN 01/21, AT PATIENT REQUEST. VSS. WILL CONTINUE TO MONITOR.
--- NOTE | 2019-02-08 23:58 | NUR ---
RN CLOSING NOTES PATIENT DISCHARGED TO [facility] IN STABLE CONDITION. TRANSPORTED WITH EMT VIA GURNEY. A/OX4. NO SIGNS OF DISTRESS OR DISCOMFORT. BREATHING EVEN AND UNLABORED. IV ACCESS IN RAC, PATENT AND INTACT, NO SIGNS OF REDNESS OR INFILTRATION. ALL DUE MEDS GIVEN. STATES PAIN IS 5/10 AT THIS TIME AND TOLERABLE. ALL PATIENT BELONGINGS WITH PATIENT. NO SKIN ISSUES NOTED. REPORT GIVEN TO [facility] [phone] FOR MARYBETH, TRANSFERRING TO ROOM [address]13. DR. FLORENCIA GALVEZ IS ACCEPTING PATIENT. ALL COPIES OF MEDICAL RECORDS ALONG WITH PATIENT. PATIENT VERBALIZE UNDERSTANDING OF DISCHARGE INSTRUCTIONS. MD AND NURSING FACILITIES SPECIALIST AWARE.
== END 2019-02-08 23:58 | disposition short-term general hospital (02) | DRG 441 ==
LOC: ER 15:17 → MEDSG2 19:44
PROVIDERS: ADMIT Hospitalist; ATTEND Registered Nurse
DX: I81 Portal vein thrombosis (principal); K85.20 Alcohol induced acute pancreatitis without necrosis or infection; E87.1 Hypo-osmolality and hyponatremia; E44.0 Moderate protein-calorie malnutrition; N39.0 Urinary tract infection, site not specified; K76.6 Portal hypertension; K86.0 Alcohol-induced chronic pancreatitis; Z87.891 Personal history of nicotine dependence; Z90.49 Acquired absence of other specified parts of digestive tract; Z68.23 Body mass index [BMI] 23.0-23.9, adult; E88.09 Other disorders of plasma-protein metabolism, not elsewhere classified; E10.65 Type 1 diabetes mellitus with hyperglycemia; E83.42 Hypomagnesemia; K74.60 Unspecified cirrhosis of liver; Z79.4 Long term (current) use of insulin; D73.2 Chronic congestive splenomegaly; F10.21 Alcohol dependence, in remission; Z76.82 Awaiting organ transplant status; K59.00 Constipation, unspecified
CPT/HCPCS: 36415; 71045-TC; 74160-TC; 76700-TC; 80048-TC; 80053-TC; 80061-TC; 80076-TC; 81000-TC; 82140-TC; 82247-TC; 82248-TC; 82962-TC; 83605-TC; 83690-TC; 83735-TC; 84100-TC; 84443-TC; 84484-TC; 85025-TC; 85610-TC; 85730-TC; 87081-TC; 87086-TC; 93976-TC; G0378; J0696; J1170; J1815; J2270; J2405; J3475; J3490; J7030; J7050; J7060; Q0163; Q9967

== ENCOUNTER 2019-03-01 08:51 | Emergency (ER) | payer OTHER ==
[~2019-03-01] VITALS: Ht 175.3 cm; Wt 74.8 kg
[~2019-03-01 08:51] MED LIST changes: +CHOL100044 PO; +FURO20TA4 PO; +INSU100I14 SQ; +INSU100I26 SQ; -INSU100V11 SQ; -INSU100V7 SQ; -MULT-465 PO; -OMEP10CA5 PO; +PANT40TA4 PO; +POTA20TA83 PO; +RIFA550T PO; +SPIR50TA5 PO; -VITA1TAB PO; +VITA1TAB56 PO; -[UNRECOGNIZED DRUG - CODE] PO
--- NOTE | 2019-03-01 08:57 | NUR ---
TO ER BED 3 FOR C/O FATIGUE AND DIZZINESS "I THINK MY AMMONIA IS HIGH". HOOKED TO MONITOR, CHANGED TO GOWN, PROVIDED W WARM BLANKET, DR NORRIS AT BEDSIDE.
[2019-03-01] MEDS ORDERED: IV NS 0.9% 1,000 ML BAG IV ONE (09:00)
--- NOTE | 2019-03-01 09:07 | NUR ---
WHEELED OUT VIA RNEY FOR CT SCAN
--- NOTE | 2019-03-01 09:20 | NUR ---
PATIENT CAME BACK FROM CT.
[2019-03-01 09:29] LABS: BASOPHILS % (AUTO) 0.8 % (0.0-2.0); EOSINOPHILS % (AUTO) 6.9 % (0.0-6.0); HEMATOCRIT 40 % (33-45); HEMOGLOBIN 14.1 g/dL (11.5-14.8); LYMPHOCYTES # (AUTO) 0.4 /CMM (0.8-4.8); LYMPHOCYTES % (AUTO) 14.4 % (20.0-44.0); MEAN CORPUSCULAR HGB CONC 35 g/dl (31.0-36.0); MEAN CORPUSCULAR VOLUME 91 fL (82-100); MONOCYTES # (AUTO) 0.2 /CMM (0.1-1.30); MONOCYTES % (AUTO) 8.2 % (2.0-12.0); NEUTROPHILS % (AUTO) 69.7 % (43.0-81.0); PLATELET COUNT (AUTO) 68 /CMM (150-450); RED BLOOD CELL COUNT(AUTO) 4.38 MIL/uL (4.0-5.2); WHITE BLOOD COUNT (AUTO) 2.8 K/uL (4.3-11.0)
[2019-03-01 09:35] LABS: POTASSIUM 4.2 mmol/L (3.5-5.1)
[2019-03-01 09:36] LABS: ALBUMIN 2.9 g/dL (3.4-5.0); BILIRUBIN,DIRECT 1.9 mg/dL (0.0-0.2); BILIRUBIN,TOTAL 2.8 mg/dL (0.2-1.0); CALCIUM, SERUM 8.9 mg/dL (8.5-10.1); CREATININE 1.1 mg/dL (0.6-1.3); TOTAL PROTEIN, SERUM 7.1 g/dL (6.4-8.2)
--- NOTE | 2019-03-01 09:38 | NUR ---
CLAIMS MANAGER AT BEDSIDE
[2019-03-01] MEDS ORDERED: INSULIN REGULAR, HUMAN 100 UNIT/ML 10 ML VIAL IV ONE (10:00)
[2019-03-01] MEDS ORDERED: PHYTONADIONE INJ 10 MG/1 ML AMPUL IM ONE (10:00)
[2019-03-01] MEDS ORDERED: INSULIN REGULAR, HUMAN 100 UNIT/ML 10 ML VIAL ONE (10:02)
[2019-03-01] MEDS ORDERED: PHYTONADIONE INJ 10 MG/1 ML AMPUL ONE (10:02)
[2019-03-01 10:05] LABS: BAND % (MANUAL) 1 % (0.0-5.0); EOSINOPHILS % (MANUAL) 7 % (0-4); LYMPHOCYTES % (MANUAL) 17 % (16-48); MONOCYTES % (MANUAL) 11 % (0-11.0); NEUTROPHILS % (MANUAL) 64 (42-76)
[2019-03-01] MEDS ORDERED: LACTULOSE 10 G/15 ML UDC (PYXIS) ONE (10:30)
[2019-03-01] MEDS ORDERED: LACTULOSE 10 G/15 ML UDC (PYXIS) PO ONE (10:30)
--- NOTE | 2019-03-01 11:07 | NUR ---
IV removed. Catheter intact and site benign. Pressure and 4x4 applied to site. No bleeding noted. Patient discharged to home in stable condition. Written and verbal after care instructions given. Patient verbalizes understanding of instruction. Ambulatory with a steady gait
[2019-03-01 11:08] VITALS: BP 130/65
== END 2019-03-01 11:09 | disposition home or self-care (01) ==
LOC: ER 08:53
DX: R42 Dizziness and giddiness (principal); K72.90 Hepatic failure, unspecified without coma; E11.65 Type 2 diabetes mellitus with hyperglycemia; Z88.1 Allergy status to other antibiotic agents
CPT/HCPCS: 36415; 70450; 80048; 80076; 82140; 85025; 85730; 93005; 96361; 96372; 96374; 99284; J1815; J3430; J7030

== ENCOUNTER 2020-04-14 22:12 | Emergency (ER) | payer OTHER ==
[~2020-04-14] VITALS: Ht 175.3 cm; Wt 74.4 kg
--- NOTE | 2020-04-14 22:36 | NUR ---
BIBS FOR C/O GENERALIZED WEAKNESS AND DRY COUGH X 6 DAYS, PT STATED HER BLOOD SUGAR WAS ABOVE 600 AT HOME AND SHE RECEIVED 55 UNITS OF BASAL? INSULIN . DENIED SOB OR CP. NO C/O PAIN. PT AMBULATORY TO BED 8. PLACED ON A MONITOR.
[2020-04-14] MEDS ORDERED: IV NS 0.9% 1,000 ML BAG IV ONE (23:00)
[2020-04-14 23:13] LABS: APPEARANCE,URINE CLEAR (CLEAR); BILIRUBIN,URINE NEGATIVE (NEGATIVE); BLOOD, URINE SMALL Ery/uL (NEGATIVE); COLOR,URINE YELLOW (YELLOW); KETONES,URINE NEGATIVE (NEGATIVE); LEUKOCYTE ESTERASE ,URINE NEGATIVE (NEGATIVE); NITRITE, URINE NEGATIVE (NEGATIVE); PH,URINE 6.5 (5.0-8.0); PROTEIN,URINE NEGATIVE (NEGATIVE); UGLUCOSE >=1000 mg/dL (NEGATIVE)
[2020-04-14 23:18] LABS: BASOPHILS % (AUTO) 0.7 % (0.0-2.0); EOSINOPHILS % (AUTO) 3.6 % (0.0-6.0); HEMATOCRIT 30 % (33-45); HEMOGLOBIN 10.3 g/dL (11.5-14.8); LYMPHOCYTES # (AUTO) 0.2 /CMM (0.8-4.8); LYMPHOCYTES % (AUTO) 14.5 % (20.0-44.0); MEAN CORPUSCULAR HGB CONC 35 g/dl (31.0-36.0); MEAN CORPUSCULAR VOLUME 93 fL (82-100); MONOCYTES # (AUTO) 0.1 /CMM (0.1-1.30); MONOCYTES % (AUTO) 6.1 % (2.0-12.0); NEUTROPHILS # (AUTO) 1.2 /CMM (1.8-8.9); NEUTROPHILS % (AUTO) 75.1 % (43.0-81.0); RED BLOOD CELL COUNT(AUTO) 3.22 MIL/uL (4.0-5.2)
[2020-04-14 23:22] LABS: BACTERIA,URINE Few /HPF (None Seen); SQUAMOUS EPITHELIAL CELL,UR Few /HPF (None Seen); WBC,URINE 0-2 /HPF (0-3)
[2020-04-14 23:22] LABS: SERUM AMMONIA 55 umol/L (11-32)
[2020-04-14 23:37] LABS: PLATELET COUNT (AUTO) 34 /CMM (150-450); WHITE BLOOD COUNT (AUTO) 1.6 K/uL (4.3-11.0)
[2020-04-14 23:38] LABS: ALANINE AMINOTRANSFERASE 49 U/L (12-78); ALBUMIN 2.9 g/dL (3.4-5.0); ALKALINE PHOSPHATASE 206 U/L (46-116); ASPARTATE AMINOTRANSFERASE 107 U/L (15-37); B-TYPE NATRIURETIC PEPTIDE 232 PG/ML (0-125); BILIRUBIN,TOTAL 6.8 mg/dL (0.2-1.0); CALCIUM, SERUM 8.6 mg/dL (8.5-10.1); CARBON DIOXIDE 27 mmol/L (21-32); CHLORIDE 92 mmol/L (98-107); CREATININE 1.5 mg/dL (0.6-1.3); EOSINOPHILS % (MANUAL) 5 % (0-4); LYMPHOCYTES % (MANUAL) 13 % (16-48); MONOCYTES % (MANUAL) 4 % (0-11.0); NEUTROPHILS % (MANUAL) 78 (42-76); POTASSIUM 3.2 mmol/L (3.5-5.1); SODIUM SERUM 131 mmol/L (136-145); TOTAL PROTEIN, SERUM 7.1 g/dL (6.4-8.2); UREA NITROGEN, BLOOD 8 mg/dL (7-18)
[2020-04-14 23:40] LABS: GLUCOSE 586 mg/dL (74-106)
[2020-04-14] MEDS ORDERED: LACTULOSE 10 G/15 ML UDC (PYXIS) ONE (23:52)
[2020-04-15] MEDS ORDERED: LACTULOSE 10 G/15 ML UDC (PYXIS) PO ONE
[2020-04-15] MEDS ORDERED: INSULIN REGULAR, HUMAN 100 UNIT/ML 10 ML VIAL ONE (00:01)
[2020-04-15] MEDS ORDERED: POTASSIUM CHLORIDE 20 MEQ TAB.PRT.SR PO ONE ×2 (00:16→00:30)
--- NOTE | 2020-04-15 00:52 | NUR ---
Patient discharged to home in stable condition. Written and verbal after care instructions given. Patient verbalizes understanding of instruction. Pt BG 375, ambulated with steady gait. vss.
[2020-04-15 00:53] VITALS: BP 122/81
[2020-04-15] MEDS ORDERED: INSULIN REGULAR, HUMAN 100 UNIT/ML 10 ML VIAL IV ONE ×2 (01:00)
== END 2020-04-15 00:54 | disposition home or self-care (01) ==
LOC: ER 22:13
DX: E10.65 Type 1 diabetes mellitus with hyperglycemia (principal); D61.818 Other pancytopenia; E72.20 Disorder of urea cycle metabolism, unspecified; R05 Cough; Z20.828 Contact with and (suspected) exposure to other viral communicable diseases; R00.0 Tachycardia, unspecified; R94.31 Abnormal electrocardiogram [ECG] [EKG]; Z79.4 Long term (current) use of insulin; K74.60 Unspecified cirrhosis of liver; E87.1 Hypo-osmolality and hyponatremia; R18.8 Other ascites
CPT/HCPCS: 36415; 71045; 80048; 80076; 81001; 82010; 82140; 82962 ×3; 83605; 83880; 84145; 84484; 85025; 85730; 87040 ×2; 87426; 87804; 93005; 96360; 96372; 99285; C9803; J1815; J7030; 81000-TC